=== PATIENT | female | born 1995 | race Caucasian/White ===

== ENCOUNTER 2018-09-16 19:42 | Emergency (ER) | payer MEDICAID, OTHER ==
[2018-09-17] MEDS: ACETAMINOPHEN 325 MG TAB PO (00:58)
== END 2018-09-17 01:05 | disposition home or self-care (01) ==
LOC: E/R 19:42
DX: O99.343 Other mental disorders complicating pregnancy, third trimester (principal); F41.9 Anxiety disorder, unspecified; M54.2 Cervicalgia; Z3A.37 37 weeks gestation of pregnancy
CPT/HCPCS: 93005; 99283-25

== ENCOUNTER 2018-09-17 01:05 | Outpatient (CLI) | payer MEDICAID | END 2018-09-17 03:30 | disposition home or self-care (01) | LOC: OBT 01:05 → L-D 01:05 → OBT 03:30 | DX: O99.343 Other mental disorders complicating pregnancy, third trimester (principal); F41.9 Anxiety disorder, unspecified; Z3A.37 37 weeks gestation of pregnancy | CPT/HCPCS: 76818 ==

== ENCOUNTER 2018-09-22 19:33 | Outpatient (CLI) | payer MEDICAID ==
[2018-09-22] MEDS: AL HYDROX/MG HYDROX/SIMETH 30 ML CUP PO (20:20)
[2018-09-22 20:56] LABS: ADD MAN DIFF? NO
[2018-09-22 21:00] LABS: BASOPHILS % 0.2 % (0.0-2.0); EOSINOPHILS % 0.3 % (0.0-7.0); HEMATOCRIT 32.9 % (37.0-47.0); HEMOGLOBIN 10.9 g/dl (12.0-16.0); LYMPHOCYTES # 1.9 10^3/ul (0.8-2.9); LYMPHOCYTES % 16.1 % (15.0-51.0); MEAN CORPUSCULAR HEMOGLOBIN 29.1 pg (29.0-33.0); MEAN CORPUSCULAR HGB CONC 33.1 g/dl (32.0-37.0); MEAN CORPUSCULAR VOLUME 87.7 fl (82.0-101.0); MEAN PLATELET VOLUME 9.6 fl (7.4-10.4); MONOCYTE # 0.7 10^3/ul (0.3-0.9); NEUTROPHIL # 9.1 10^3/ul (1.6-7.5); NEUTROPHILS % 76.7 % (39.0-77.0); PLATELET COUNT 315 10^3/UL (140-415); RED BLOOD COUNT 3.75 10^6/ul (4.20-5.40); RED CELL DISTRIBUTION WIDTH 14.5 % (11.5-14.5)
[2018-09-22 21:00] LABS: WHITE BLOOD COUNT 11.8 10^3/ul (4.8-10.8)
[2018-09-22 21:05] LABS: ADD UMIC YES; UR ASCORBIC ACID NEGATIVE (NEGATIVE); UR BACTERIA FEW /HPF (NONE SEEN); UR BILIRUBIN (Dip) NEGATIVE (NEGATIVE); UR BLOOD (Dip) NEGATIVE (NEGATIVE); UR CLARITY CLEAR (CLEAR); UR COLOR YELLOW (YELLOW); UR GLUCOSE (Dip) NEGATIVE (NEGATIVE); UR KETONES (Dip) NEGATIVE (NEGATIVE); UR LEUKOCYTE ESTERASE (Dip) TRACE Leu/ul (NEGATIVE); UR NITRITE (Dip) NEGATIVE (NEGATIVE); UR RBC 1 /HPF (0-5); UR SPECIFIC GRAVITY (Dip) 1.009 (1.003-1.030); UR SQUAMOUS EPITHELIAL CELL FEW /HPF (FEW); UR TOTAL PROTEIN (Dip) NEGATIVE (NEGATIVE); UR UROBILINOGEN (Dip) NEGATIVE (NEGATIVE); UR WBC 2 /HPF (0-5)
[2018-09-22 21:29] LABS: ALANINE AMINOTRANSFERASE 17 IU/L (13-69); ALBUMIN 3.5 g/dl (3.3-4.9); ALBUMIN/GLOBULIN RATIO 1.16; ALKALINE PHOSPHATASE 107 IU/L (42-121); ANION GAP 6 (5-13); ASPARTATE AMINO TRANSFERASE 17 IU/L (15-46); BLOOD UREA NITROGEN 6 mg/dl (7-20); CALCIUM 9.4 mg/dl (8.4-10.2); CARBON DIOXIDE 23 mmol/L (21-31); CHLORIDE 108 mmol/L (97-110); CREATININE 0.33 mg/dl (0.44-1.00); Estimated GFR > 60 mL/min (>60); GLUCOSE 76 mg/dl (70-220); POTASSIUM 3.8 mmol/L (3.5-5.1); SODIUM 137 mmol/L (135-144); TOTAL PROTEIN 6.5 g/dl (6.1-8.1)
== END 2018-09-22 22:50 | disposition home or self-care (01) ==
LOC: OBT 19:33 → L-D 19:36 → OBT 22:50
DX: O99.343 Other mental disorders complicating pregnancy, third trimester (principal); F41.9 Anxiety disorder, unspecified; O26.893 Other specified pregnancy related conditions, third trimester; K21.9 Gastro-esophageal reflux disease without esophagitis; R07.9 Chest pain, unspecified; O99.213 Obesity complicating pregnancy, third trimester; E66.9 Obesity, unspecified; Z87.440 Personal history of urinary (tract) infections; Z3A.38 38 weeks gestation of pregnancy
CPT/HCPCS: 76818; 80053; 81001; 85025

== ENCOUNTER 2018-09-22 22:53 | Emergency (ER) | payer MEDICAID ==
[2018-09-23] MEDS: HYDROCODONE/APAP (5/325) TAB PO (02:57)
== END 2018-09-23 03:04 | disposition home or self-care (01) ==
LOC: E/R 22:53
DX: O99.89 Other specified diseases and conditions complicating pregnancy, childbirth and the puerperium (principal); M94.0 Chondrocostal junction syndrome [Tietze]; Z3A.38 38 weeks gestation of pregnancy
CPT/HCPCS: 93005; 99283-25; Z7502

== ENCOUNTER 2018-10-05 09:24 | Outpatient (CLI) | payer MEDICAID | END 2018-10-05 13:46 | disposition home or self-care (01) | LOC: OBT 09:24 → L-D 09:26 → OBT 13:46 | DX: O48.0 Post-term pregnancy (principal); Z3A.40 40 weeks gestation of pregnancy | CPT/HCPCS: 76815; 76818 ==

== ENCOUNTER 2018-10-06 10:31 | Inpatient (IN) | payer MEDICAID ==
[2018-10-06] MEDS ORDERED: OXYTOCIN 30 UNITS/LR 500 ML IV (11:00)
[2018-10-06] MEDS ORDERED: CARBOPROST 250 MCG INJ IM (11:00)
[2018-10-06] MEDS ORDERED: BUTORPHANOL 1 MG INJ IV (11:00)
[2018-10-06] MEDS ORDERED: BUTORPHANOL 2 MG INJ IV (11:00)
[2018-10-06 11:57] LABS: ADD MAN DIFF? NO
[2018-10-06 12:00] LABS: BASOPHILS % 0.2 % (0.0-2.0); EOSINOPHILS % 0.2 % (0.0-7.0); HEMATOCRIT 32.2 % (37.0-47.0); HEMOGLOBIN 10.9 g/dl (12.0-16.0); LYMPHOCYTES # 1.5 10^3/ul (0.8-2.9); LYMPHOCYTES % 13.4 % (15.0-51.0); MEAN CORPUSCULAR HEMOGLOBIN 29.9 pg (29.0-33.0); MEAN CORPUSCULAR HGB CONC 33.9 g/dl (32.0-37.0); MEAN CORPUSCULAR VOLUME 88.2 fl (82.0-101.0); MEAN PLATELET VOLUME 9.7 fl (7.4-10.4); MONOCYTE # 0.5 10^3/ul (0.3-0.9); MONOCYTES % 4.4 % (0.0-11.0); NEUTROPHIL # 8.8 10^3/ul (1.6-7.5); NEUTROPHILS % 80.8 % (39.0-77.0); PLATELET COUNT 319 10^3/UL (140-415); RED BLOOD COUNT 3.65 10^6/ul (4.20-5.40); RED CELL DISTRIBUTION WIDTH 14.3 % (11.5-14.5)
[2018-10-06 12:00] LABS: WHITE BLOOD COUNT 10.9 10^3/ul (4.8-10.8)
[2018-10-06 12:24] LABS: INR 0.88; PT RATIO 0.9
[2018-10-06 12:25] LABS: PARTIAL THROMBOPLASTIN TIME 26.3 Sec (23.0-35.0)
[2018-10-06 12:50] LABS: HEPATITIS B SURFACE ANTIGEN NEGATIVE (NEGATIVE)
[2018-10-06] MEDS: MISOPROSTOL 50 MCG CAPSULE PO ×3 (13:26→22:05)
[2018-10-06] MEDS: LACTATED RINGER'S 1,000 ML IV ×2 (13:26→19:21)
[2018-10-06 16:45] LABS: RAPID PLASMA REAGIN NONREACTIVE (NR)
[2018-10-07] MEDS: MISOPROSTOL 50 MCG CAPSULE PO ×2 (02:02→06:01)
[2018-10-07] MEDS: LACTATED RINGER'S 1,000 ML IV ×4 (02:54→14:57)
[2018-10-07] MEDS ORDERED: ONDANSETRON 4 MG INJ IV (10:00)
[2018-10-07] MEDS ORDERED: NALOXONE (0.4 MG/ML) INJ IV (10:00)
[2018-10-07] MEDS ORDERED: DIPHENHYDRAMINE 50 MG INJ IV (10:00)
[2018-10-07] MEDS ORDERED: ROPIVACAINE 0.2% 100 ML (10:05)
[2018-10-07] MEDS ORDERED: ROPIVACAINE 0.2% 100ML BAG EPI (10:05)
[2018-10-07] MEDS: OXYTOCIN 30 UNITS/LR 500 ML IV (10:49)
[2018-10-07] MEDS: FENTAnyl 2MCG/ML-ROPIV 0.2% 100 ML BAG EPI ×3 (10:51→20:39)
[2018-10-08] MEDS: LACTATED RINGER'S 1,000 ML IV ×2 (02:58→03:29)
[2018-10-08] MEDS: FENTAnyl 2MCG/ML-ROPIV 0.2% 100 ML BAG EPI ×2 (03:30→08:07)
[2018-10-08] MEDS: OXYTOCIN 30 UNITS/LR 500 ML IV ×3 (03:31→09:03)
[2018-10-08] MEDS: METHYLERGONOVINE 0.2 MG INJ IM (08:40)
[2018-10-08] MEDS: MISOPROSTOL 200 MCG TAB PR (08:43)
[2018-10-08] MEDS: LIDOCAINE 1% (MPF) 30 ML INJ INJ (08:46)
[2018-10-08] MEDS: IBUPROFEN 600 MG TAB PO ×3 (10:44→23:50)
[2018-10-08] MEDS ORDERED: MISOPROSTOL 200 MCG TAB PR (12:30)
[2018-10-08] MEDS ORDERED: ACETAMINOPHEN 325 MG TAB PO (12:30)
[2018-10-08] MEDS ORDERED: OXYTOCIN 30 UNITS/LR 500 ML IV (12:30)
[2018-10-08] MEDS ORDERED: CARBOPROST 250 MCG INJ IM (12:30)
[2018-10-08] MEDS ORDERED: HYDROCODONE/APAP (5/325) TAB PO (12:30)
[2018-10-08] MEDS ORDERED: DIBUCAINE 1% 30 GM OINT TOP (12:30)
[2018-10-08] MEDS ORDERED: METHYLERGONOVINE 0.2 MG INJ IM (12:30)
[2018-10-08] MEDS: LACTATED RINGER'S 1,000 ML IV* ×2 (14:37→20:09)
[2018-10-08] MEDS: WITCH HAZEL/GLYCERIN PAD PR (14:38)
[2018-10-08] MEDS: BENZOCAINE 20% 56 ML SPRAY TOP (14:38)
[2018-10-08] MEDS: SENNA/DOCUSATE NA (8.6MG/50MG) TAB PO (21:22)
[2018-10-09] MEDS: LACTATED RINGER'S 1,000 ML IV* ×2 (03:20→12:09)
[2018-10-09] MEDS: IBUPROFEN 600 MG TAB PO ×3 (05:34→17:08)
[2018-10-09 08:06] LABS: ADD MAN DIFF? NO
[2018-10-09 08:08] LABS: WHITE BLOOD COUNT 12.1 10^3/ul (4.8-10.8)
[2018-10-09 08:08] LABS: BASOPHILS % 0.2 % (0.0-2.0); EOSINOPHILS % 0.3 % (0.0-7.0); HEMOGLOBIN 10.4 g/dl (12.0-16.0); LYMPHOCYTES # 2.2 10^3/ul (0.8-2.9); LYMPHOCYTES % 17.9 % (15.0-51.0); MEAN CORPUSCULAR HEMOGLOBIN 29.3 pg (29.0-33.0); MEAN CORPUSCULAR HGB CONC 32.5 g/dl (32.0-37.0); MEAN CORPUSCULAR VOLUME 90.1 fl (82.0-101.0); MEAN PLATELET VOLUME 9.9 fl (7.4-10.4); MONOCYTE # 0.8 10^3/ul (0.3-0.9); MONOCYTES % 6.3 % (0.0-11.0); NEUTROPHILS % 74.6 % (39.0-77.0); PLATELET COUNT 285 10^3/UL (140-415); RED BLOOD COUNT 3.55 10^6/ul (4.20-5.40); RED CELL DISTRIBUTION WIDTH 14.6 % (11.5-14.5)
[2018-10-09] MEDS: SENNA/DOCUSATE NA (8.6MG/50MG) TAB PO ×2 (10:04→21:53)
[2018-10-10] MEDS: IBUPROFEN 600 MG TAB PO ×2 (00:43→05:23)
[2018-10-10] MEDS: DIPHTH/TET/ACEL PERTUSS (ADULT) 0.5 ML VIAL IM* (09:04)
[2018-10-10] MEDS: SENNA/DOCUSATE NA (8.6MG/50MG) TAB PO (09:04)
== END 2018-10-10 11:50 | disposition home or self-care (01) | DRG 807 ==
LOC: L-D 10-08 09:16 → PP1 10-08 14:27
PROVIDERS: Obstetrics & Gynecology
PROC: 3E033VJ Introduction of Other Hormone into Peripheral Vein, Percutaneous Approach (ICD-10-PCS; 2018-10-06 10:00)
DX: O70.1 Second degree perineal laceration during delivery (principal); Z37.0 Single live birth; Z3A.40 40 weeks gestation of pregnancy
CPT/HCPCS: 62319; 85025; 85610; 85730; 86592; 86850; 86900; 86901; 87340; 99464